=== PATIENT | male | born 1955 | race Caucasian/White ===

== ENCOUNTER 2017-08-02 15:50 | Emergency (ER) | payer BC ==
[2017-08-02 16:06] VITALS: BP 183/96
--- NOTE | 2017-08-02 16:25 | EDM.PDOC ---
ED HPI GENERAL MEDICAL PROBLEM - General Chief Complaint: General Stated Complaint: Sinus congestion Time Seen by Provider: 08/02/17 16:10 Source of Information: Reports: Patient, RN Notes Reviewed History Limitations: Reports: No Limitations - History of Present Illness INITIAL COMMENTS - FREE TEXT/NARRATIVE: 62 year old male presents to ED with 2-3 day history of sinus congestion, sinus pressure, sore throat, and mild cough. He's had no fever but has felt chilled. He reports nasal congestion and post-nasal drip. He is able to blow his nose but it does not relieve the pressure. Sinus drainage is thick and yellow in color. It does not hurt to swallow. He has no ear pain. His primary complaint is sinus congestion. No history of allergies. Cough is described as mild, intermittent, and non-productive. His was recently treated for sinus infection with Augmentin and they are requesting the same treatment. They are concerned about their son getting sick. No chest pain, shortness of breath, nausea, vomiting, or diarrhea. No recent antibiotic use. - Related Data Allergies Allergy/AdvReac Type Severity Reaction Status Date / Time No Known Allergies Allergy Verified 08/02/17 16:06 Home Meds: Home Meds Ascorbic Acid [Vitamin C] 500 mg PO DAILY 01/18/16 [History] Carbamide Peroxide [Debrox 6.5% Otic Soln] 1 drop EARBOTH ASDIRECTED 01/18/16 [ History] Hydrochlorothiazide 12.5 mg PO DAILY 01/18/16 [History] Meloxicam [Mobic] 7.5 mg PO DAILY PRN 01/18/16 [History] Multivitamin [Multi-Day Vitamins] 1 each PO DAILY 01/18/16 [History] Thiamine [Vitamin B-1] 100 mg PO DAILY 01/18/16 [History] Hydrocodone/Acetaminophen [[place] 5-325 Tablet] 1 - 2 each PO Q6H PRN #15 tablet 08/18/16 [Rx] Losartan [Cozaar] 50 mg PO DAILY 08/18/16 [History] Past Medical History HEENT History: Reports: Other (See Below) Other HEENT History: eustachian tube dysfunction, impacted cerumen Cardiovascular History: Reports: Hypertension Gastrointestinal History: Reports: Other (See Below) Other Gastrointestinal History: colon polyps, tublovillous adenoma Musculoskeletal History: Reports: Osteoarthritis Other Musculoskeletal History: R knee pain Psychiatric History: Reports: Other (See Below) Other Psychiatric History: alcohol abuse - Past Surgical History GI Surgical History: Reports: Colonoscopy Social & Family History - Tobacco Use Smoking Status *Q: Former Smoker Used Tobacco, but Quit: Yes Month Tobacco Last Used: 2011 - Caffeine Use Caffeine Use: Reports: Tea - Alcohol Use Days Per Week of Alcohol Use: 7 Number of Drinks Per Day: 2 Total Drinks Per Week: 14 - Recreational Drug Use Recreational Drug Use: No Drug Use in Last 12 Months: No ED ROS GENERAL - Review of Systems Review Of Systems: See Below Constitutional: Reports: Chills, Night Sweats. Denies: Fever HEENT: Reports: Rhinitis, Sinus Problem, Throat Pain. Denies: Ear Pain, Throat Swelling Respiratory: Reports: Cough. Denies: Shortness of Breath, Wheezing, Sputum Cardiovascular: Reports: No Symptoms. Denies: Chest Pain GI/Abdominal: Reports: No Symptoms. Denies: Abdominal Pain, Diarrhea, Nausea, Vomiting Skin: Reports: No Symptoms. Denies: Rash ED EXAM, GENERAL - Physical Exam Exam: See Below Exam Limited By: No Limitations General Appearance: Alert, WD/WN, No Apparent Distress Ears: Normal External Exam, Normal Canal, Normal TMs Nose: Normal Inspection, Normal Mucosa, Other (maxillary sinus pressure ) Throat/Mouth: Normal Inspection, Normal Oropharynx, No Airway Compromise, Other (mild erythema to oropharynx. no tonsillar swelling or exudates. ) Neck: Normal Inspection, Supple, Non-Tender, Full Range of Motion. No: Lymphadenopathy (L), Lymphadenopathy (R) Respiratory/Chest: No Respiratory Distress, Lungs Clear, Normal Breath Sounds, Chest Non-Tender Cardiovascular: Normal Peripheral Pulses, Regular Rate, Rhythm, No Murmur Neurological: Alert, Oriented, Normal Cognition Skin Exam: Warm, Dry, Intact Course - Vital Signs Last Recorded V/S: Last Vital Signs Temp 97.0 F 08/02/17 16:04 Pulse 65 08/02/17 16:04 Resp 16 08/02/17 16:04 BP 183/96 H 08/02/17 16:04 Pulse Ox 97 08/02/17 16:04 Departure - Departure Time of Disposition: 16:25 Disposition: Home, Self-Care 01 Condition: Good Clinical Impression: Sinusitis Qualifiers: Sinusitis location: maxillary Chronicity: acute Recurrence: non-recurrent Qualified Code(s): J01.00 - Acute maxillary sinusitis, unspecified Upper respiratory infection Qualifiers: URI type: unspecified viral URI Qualified Code(s): J06.9 - Acute upper respiratory infection, unspecified; B97.89 - Other viral agents as the cause of diseases classified elsewhere; B97.89 - Other viral agents as the cause of diseases classified elsewhere - Discharge Information Referrals: Cisco Morris MD [Primary Care Provider] - Additional Instructions: Rest and drink plenty of fluids Tylenol or Ibuprofen as needed for pain Augmentin 1 tab PO BID x7 days (sent to [facility]) Nedi-pot twice a day followed by flonase nasal spray, 1 spray to each nostril twice a day for 10 days. Flonase nasal spray is over the counter Follow-up in clinic in 3-4 days if not improved Return to ER with new or worsening symptoms
== END 2017-08-02 16:32 | disposition home or self-care (01) ==
LOC: JD.ED 15:50
DX: J01.00 Acute maxillary sinusitis, unspecified (principal); J06.9 Acute upper respiratory infection, unspecified; Z79.899 Other long term (current) drug therapy; Z87.891 Personal history of nicotine dependence
CPT/HCPCS: 99283